=== PATIENT | female | born 1965 | race Caucasian/White ===

== ENCOUNTER 2022-10-07 15:55 | Emergency (ER) | payer OTHER ==
[~2022-10-07] VITALS: Ht 162.6 cm; Wt 93.0 kg
[2022-10-07] MEDS ORDERED: ATORVASTATIN CA40 MG PO (16:05)
[2022-10-07] MEDS ORDERED: MACRODANTIN100 M1 PO (20:38)
[2022-10-07] MEDS ORDERED: IBU600 MG PO (20:45)
[2022-10-07] MEDS ORDERED: TAMS0.4C PO (20:45)
== END 2022-10-07 21:31 | disposition home or self-care (01) ==
LOC: ER 15:55
DX: N20.0 Calculus of kidney (principal); R10.9 Unspecified abdominal pain; E78.00 Pure hypercholesterolemia, unspecified; D25.9 Leiomyoma of uterus, unspecified